=== PATIENT | male | born 1975 | race Caucasian/White ===

== ENCOUNTER 2019-09-12 08:16 | Emergency (ER) | payer OTHER ==
--- OUTSIDE RECORDS SUMMARY | 2019-09-12 08:28 | XMS REPORT | Continuity of Care Document ---
:1975 External Reference #:[id number] Author Name Quintin Flynn (transmitted by agent of provider Roseline Quintero) Address [address] [place] [address] Care Team Providers Name Role Phone Quintin Flynn MD - Internal Medicine Care Team Information [employer] Problems Description No Information Available Social History Type Date Description Comments Sex Unknown Tobacco Use Start: Unknown Patient is a current cigarette smoker, smokes every day ETOH Use Social Tobacco Use Start: Unknown Patient is a current smoker, smokes every day Recreational Drug Use Former Drug User Smoking Status Reviewed: 11/22/17 Patient is a current smoker, smokes every day Seat Belt/Car Seat Negative For Never uses seat belt Seat Belt/Car Seat Always uses seat belt Allergies, Adverse Reactions, Alerts Active Allergies Reaction Severity Comments Date Amlodipine 02/22/2017 Ammonium Lauryl Sulfate 02/22/2017 sulfa 02/22/2017 Medications Active Medications SIG Qnty Indications Ordering Date Provider Azithromycin 2 by mouth today, 6tabs R05 Quintin Flynn 07/09/2019 250mg 1 by mouth day 2 Tablets thru 5 Tamiflu 1 by mouth twice 10caps J10.00 Quintin Flynn 07/09/2019 75mg Capsules a day Albuterol Sulfate HFA 2 Puffs Every 4 25.5gm J45.30 Quintin Flynn 03/25/2019 Hours as Needed 108(90Base) mcg/Act SOB/Wheezing Aerosol Lidocaine Apply To Affected 30units G89.4 Quintin Flynn 08/06/2018 5% Patches Area(S) , Change Daily as Directed Lisinopril-Hydrochlor 1 tab by mouth 90tabs Quintin Flynn 05/29/2018 othiazide every morning 20-12.5mg Tablets Furosemide Take One Tablet 90tabs Quintin Flynn 04/18/2018 20mg Tablets By Mouth Every Day Benadryl Allergy Take 1 To 2 60caps G47.33 Chad Flynnl 01/02/2018 25mg Tablets By Mouth Capsules Four Times A Day as Needed Omeprazole Take One Capsule 90caps K21.9 Chad Flynnl 11/22/2017 20mg By Mouth Every Capsules DR Day Fluoxetine HCL (PMDD) Take Three 180caps Chad Flynnl 11/22/2017 Capsules By Mouth 20mg Capsules Every Day Advair HFA 2 puff twice day 8gm J45.30 Rina Quintin 09/21/2017 115-21mcg/Act Aerosol J44.9 Betamethasone Dipropionate apply to affected areas 30gm L13.0 Zacheryheather Quintin 08/21/2017 0.05% twice daily Cream Medications Administered in Office Medication SIG Qnty Indications Ordering Provider Date Office Emergency Care Chad Flynnl 07/09/2019 Injection Immunizations CPT Code Status Date Vaccine Lot # [id number] Given 07/30/2018 Tetanus,Diphtheria,Adut/Adol Pertussis [id number] Given 07/30/2018 Influenza Virus Vaccine, Quadrivalent, Split, Preservative Free [id number] Given 09/21/2017 Influenza Virus (Quadrivalent)Splitvirus 3 Years [id number] Of Age And Older Vital Signs Date Vital Result Comment 08/22/2019 10:06am BP Systolic 160 mmHg BP Diastolic 90 mmHg Heart Rate 75 /min Respiratory Rate 20 /min Height 65 inches 5'5" Weight 370.00 lb BMI (Body Mass Index) 61.6 kg/m2 O2 % BldC Oximetry 98 % 07/09/2019 10:17am BP Systolic 160 mmHg BP Diastolic 100 mmHg Heart Rate 70 /min Respiratory Rate 22 /min Height 64 inches 5'4" Weight 370.00 lb BMI (Body Mass Index) 63.5 kg/m2 O2 % BldC Oximetry 97 % Results Test Acquired Date Facility Test Result H/L Range Note Lipid Panel 03/25/2019 Cholesterol 145 mg/dL <199 1 HDL Cholesterol 34 mg/dL Low >40 Cholesterol/HDL Ratio 4.3 CALC <5.0 LDL Chol,Calculated 92 mg/dL 0-100 2 Triglycerides 93 mg/dL <150 Non-HDL Cholesterol 111 mg/dL <130 3 General [facility] 03/25/2019 TSH 1.11 mIU/L 0.40-4.50 T4,Free 1.2 ng/dL 0.8-1.8 CBC W/ Diff & PLT 03/25/2019 WBC 4.5 thous/L 3.8-10.8 RBC 5.05 mill/L 4.20-5.80 Hemoglobin 15.6 g/dL 13.2-17.1 Hematocrit 46.9 % 38.5-50.0 MCV 92.9 FL 80.0-100.0 MCH 30.9 pg 27.0-33.0 MCHC 33.3 g/dL 32.0-36.0 RDW 13.4 % 11.0-15.0 Platelet Count 161 thous/L 140-400 MPV 11.6 FL 7.5-12.5 Neutrophils,Absolute 1940 cells/L 9301-4505 Bands,Absolute PENDING Metamyelocytes,Absolute PENDING Myelocytes,Absolute PENDING Promyelocytes,Absolute PENDING Lymphocytes,Absolute 1790 cells/L 850-3900 Monocytes,Absolute 530 cells/L 200-950 Eosinophils,Absolute 240 cells/L 15-500 Basophils,Absolute 20 cells/L 0-200 Blast Cells,Absolute PENDING Nucleated RBC,Absolute PENDING Total Neutrophils,% 43.0 % 40-75 Bands,% PENDING Metamyelocytes,% PENDING Myelocytes,% PENDING Promyelocytes,% PENDING Total Lymphocytes,% 39.6 % 12-47 Reactive Lymphocytes PENDING Monocytes,% 11.7 % 4-12 Eosinophils,% 5.3 % High 0-4 Basophils,% 0.4 % 0-1 4 Blasts,% PENDING Nucleated RBC PENDING Comment PENDING CMP W/GFR 03/25/2019 Sodium 138 mmol/L 135-146 Potassium 4.7 mmol/L 3.5-5.3 Chloride 103 mmol/L 98-110 Carbon Dioxide 26 mmol/L 20-32 5 Calcium 9.5 mg/dL 8.6-10.3 Alkaline Phosphatase 64 U/L 40-115 Ast 95 U/L High 10-40 Alt 147 U/L High 9-46 Bilirubin,Total 0.7 mg/dL 0.2-1.2 Glucose 79 mg/dL 65-99 6 Urea Nitrogen (BUN) 17 mg/dL 7-25 Creatinine 1.03 mg/dL 0.60-1.35 BUN/Creatinine Ratio 16.5 6-22 Protein,Total 7.3 g/dL 6.1-8.1 Albumin 4.4 g/dL 3.6-5.1 Globulin,Calculated 2.9 g/dL 1.9-3.7 A/G Ratio 1.5 1.0-2.5 Egfr Non-Afr. Angolan 89 ML/MIN/1.73M2 > Or = 60 Egfr 103 ML/MIN/1.73M2 > Or = 60 1 FASTING 2 LDL-C is now calculated using the Thierno-Russell calculation, which is a validated novel method providing better accuracy than the Friedewald equation in the estimation of LDL-C. Thierno RUIZ et al.JOELLEN.2013;310(19):6366-0315 Desirable range <100 mg/dL for primary prevention; <70 mg/dL for patients with CHD or diabetic patients with >or= 2 CHD risk factors. For additional information, please refer to http://education.Kabooza/faq/YEU723(This link is being provided for informational/educational purposes only.) 3 For patients with diabetes plus 1 major ASCVD risk factor, treating to a non-HDL-C goal of <100 mg/dL (LDL-C of <70 mg/ dL) is considered a therapeutic option. 4 Relative blood cell counts (%) should be compared with absolute cell counts (cells/mcL). Relative counts may not be clinically meaningful if the absolute count of one or more cell type is decreased. Reference ranges for relative cell counts derived from: A Manual of Laboratory and Diagnostics Tests, 9th Ed, [employer], 2015. Pediatric Reference Intervals, 7th Ed, [employer], 2011. 5 Reference range for high altitude clients: 18-30 mmol/L 6 GLUCOSE REFERENCE RANGE BASED ON FASTING SPECIMEN. Procedures Date Code Description Status 07/09/2019 59429 PFT Evaluation Completed 07/09/2019 86944 Spirometry Graphic Record/Max Voluntary Vent Completed 04/08/2019 92616 Spirometry Graphic Record/Max Voluntary Vent Completed 03/25/2019 55274 PFT Evaluation Completed 03/25/2019 56672 EKG-Tracing & Report Completed Medical Devices Description No Information Available Encounters Type Date Location Provider Dx Diagnosis Office Visit 07/09/2019 10:00a Main Office Quintin Flynn R06.02 Shortness of breath J44.9 Chronic obstructive pulmonary disease, unspecified G89.4 Chronic pain syndrome E66.01 Morbid (severe) obesity due to excess calories I11.9 Hypertensive heart disease without heart failure J45.30 Mild persistent asthma, uncomplicated K21.9 Gastro-esophageal reflux disease without esophagitis F17.200 Nicotine dependence, unspecified, uncomplicated R05 Cough G47.33 Obstructive sleep apnea (adult) (pediatric) J10.00 Flu due to oth ident flu virus w unsp type of pneumonia Office Visit 04/16/2019 11:45a Main Office Quintin Flynn R06.02 Shortness of breath J44.9 Chronic obstructive pulmonary disease, unspecified G89.4 Chronic pain syndrome E66.01 Morbid (severe) obesity due to excess calories I11.9 Hypertensive heart disease without heart failure J45.30 Mild persistent asthma, uncomplicated K21.9 Gastro-esophageal reflux disease without esophagitis F17.200 Nicotine dependence, unspecified, uncomplicated R07.9 Chest pain, unspecified Office Visit 03/25/2019 10:00a Main Office Quintin Flynn G89.4 Chronic pain syndrome E66.01 Morbid (severe) obesity due to excess calories I11.9 Hypertensive heart disease without heart failure J45.30 Mild persistent asthma, uncomplicated G47.33 Obstructive sleep apnea (adult) (pediatric) J44.9 Chronic obstructive pulmonary disease, unspecified K21.9 Gastro-esophageal reflux disease without esophagitis F17.200 Nicotine dependence, unspecified, uncomplicated R07.9 Chest pain, unspecified E78.2 Mixed hyperlipidemia R05 Cough R06.02 Shortness of breath Assessments Date Code Description Provider 07/09/2019 R06.02 Shortness of breath Gauss, Quintin 07/09/2019 R06.02 Shortness of breath Gauss, Quintin 07/09/2019 J44.9 Chronic obstructive pulmonary disease, unspecified Gauss, Quintin 07/09/2019 J44.9 Chronic obstructive pulmonary disease, unspecified Gauss, Quintin 07/09/2019 R05 Cough Gauss, Quintin 07/09/2019 G89.4 Chronic pain syndrome Gauss, Quintin 07/09/2019 E66.01 Morbid (severe) obesity due to excess calories Gauss, Quintin 07/09/2019 I11.9 Hypertensive heart disease without heart failure Gauss, Quintin 07/09/2019 J45.30 Mild persistent asthma, uncomplicated Gauss, Quintin 07/09/2019 K21.9 Gastro-esophageal reflux disease without esophagitis Gauss , Quintin 07/09/2019 F17.200 Nicotine dependence, unspecified, uncomplicated Gauss, Quintin 07/09/2019 R05 Cough Gauss, Quintin 07/09/2019 G47.33 Obstructive sleep apnea (adult) (pediatric) Gauss, Quintin 07/09/2019 J10.00 Influenza due to other identified influenza virus with [facility] unspecified type of pneumonia 04/16/2019 R06.02 Shortness of breath Gauss, Quintin 04/16/2019 J44.9 Chronic obstructive pulmonary disease, unspecified Gauss, [facility] 04/16/2019 G89.4 Chronic pain syndrome Gauss, [facility] 04/16/2019 E66.01 Morbid (severe) obesity due to excess calories Gauss, Quintin 04/16/2019 I11.9 Hypertensive heart disease without heart failure Gauss, Quintin 04/16/2019 J45.30 Mild persistent asthma, uncomplicated Gauss, Quintin 04/16/2019 K21.9 Gastro-esophageal reflux disease without esophagitis Gauss , Quintin 04/16/2019 F17.200 Nicotine dependence, unspecified, uncomplicated Gauss, Quintin 04/16/2019 R07.9 Chest pain, unspecified Gauss, Quintin 04/08/2019 R06.02 Shortness of breath Gauss, Quintin 04/08/2019 J44.9 Chronic obstructive pulmonary disease, unspecified Gauss, Quintin 04/08/2019 R05 Cough Gauss, [facility] 03/25/2019 G89.4 Chronic pain syndrome Gauss, [facility] 03/25/2019 E66.01 Morbid (severe) obesity due to excess calories Gauss, Quintin 03/25/2019 I11.9 Hypertensive heart disease without heart failure Gauss, Quintin 03/25/2019 J45.30 Mild persistent asthma, uncomplicated Gauss, Quintin 03/25/2019 G47.33 Obstructive sleep apnea (adult) (pediatric) Gauss, [place] 03/25/2019 J44.9 Chronic obstructive pulmonary disease, unspecified Gauss, Quintin 03/25/2019 K21.9 Gastro-esophageal reflux disease without esophagitis Gauss , [facility] 03/25/2019 F17.200 Nicotine dependence, unspecified, uncomplicated Rina, Quintin 03/25/2019 R07.9 Chest pain, unspecified Rina, Quintin 03/25/2019 E78.2 Mixed hyperlipidemia Rina, Quintin 03/25/2019 R05 Cough Rina, Quintin 03/25/2019 R06.02 Shortness of breath Quintin Flynn Plan of Treatment 07/09/2019 - Chad FlynnlR06.02 Shortness of guvmbwK13.9 Chronic obstructive pulmonary disease, unspecifiedComments:Discussed importance of excersize and avoidance of all smoke. Enviromental factors that can spark exacerbations reviewed. The necessity of reporting any changes in condition, early intervention in exacerbations and proper useand the importance of compliance with medications. Reports if applicable of home care providers, and equipment suppliers and Respiratory Therapy reviewed.G89.4 Chronic pain ndgwzldqS55.01 Morbid (severe) obesity due to excess zcjqiguiJ90.9 Hypertensive heart disease without heart failureComments:CONT. TO MONITOR BP, CONT. LOW SALT DIET Discussed lifestyle factors and role of diet and excerns incontrol of disease and treatment goals and targets. Medication side effects and compliance issues addressed as indicated. The importance of ongoing self monitoring of BP and the symptoms of complications such as TIA, CVA and AMI reviewed. The importance of reporting changes in between visits and side effects stressed. monitoring of patient provided BP checks and laboratory tests related to medicationreviewed. Discussed lifestyle factors and role of diet and excerns in control of disease and treatment goals and targets. Medication side effects and compliance issues addressed as indicated. The importance of ongoing self monitoring of BP and the symptoms of complications such as TIA, CVA and AMI reviewed. The importance of reporting changes in between visits and side effects stressed. monitoring of patient provided BP checks and laboratory tests related to medication reviewed.J45.30 Mild persistent asthma, nmwroopyjwmnqL78.9 Gastro-esophageal reflux disease without esophagitisComments:Discussed role of diet and excersize and weight reduction and contribution of common exacerbating factors/ substances such as stress/fatigue/caffeine/nicotine/chocolate/ foods.Signs and symptoms of disease progression discussed as well as necessity to promptly report changes or worsening and the need for medication compliance. Periodic measurement and follow up for serum Magnesium levels while on PPI.F17.200 Nicotine dependence, unspecified, uncomplicatedComments:Discussed health effects and consequences of nicotine and tobacco. Discussed quitting strategies andaids to withdrawal including seminars, classes, hypnosis, medications. Offered encouragement to change and benefits to be expected in health overall and specific conditions that are effected. Literature and follow up planned.Discussed health effects and consequences of nicotine and tobacco. Discussed quitting strategies and aids to withdrawal including seminars, classes , hypnosis, medications. Offered encouragement to change and benefits to be expected in health overall and specific conditions that are effected. Literature and follow up planned. Discussion time less than 10 [id number] CoughNew Medication:Azithromycin 250 mg - 2 by mouth today, 1 by mouth day 2 thru 5G47.33 Obstructive sleep apnea (adult) (pediatric)Comments:Continue CPAPWeight LossJ10.00 Influenza due to other identified influenza virus with unspecified type of pneumoniaNew Medication:Tamiflu 75 mg - 1 by mouth twice a day Functional Status Description No Information Available Mental Status Description No Information Available Referrals Refer to Reason for Referral Status Appt Date Sae Dai Closed 04/30/2019 [address] [place] [id number] [phone]
[2019-09-12 08:52] VITALS: BP 184/111
--- NOTE | 2019-09-12 09:18 | UC ---
Skin Complaint HPI - HPI Summary HPI Summary: Pt presents with c/o "sores" on right hand that began 2-3 days ago. Pt states that they spontaneously appeared, one has opened and drained last evening, and pt reports he has applied otc neosporin ointment and noted that one days later his right hand began to swell. Pt denies fever, chills, red streaking from wounds and reports one wound/sore opened and drained last night. Pt denies aggravating wounds and is keeping them clean by washing hands frequently. - History of Current Complaint Chief Complaint: UCUpperExtremity Time Seen by Provider: 09/12/19 08:50 Stated Complaint: RT HAND SWELLING Hx Obtained From: Patient Onset/Duration: Sudden Onset, Lasting Days, Still Present, Worse Since - onset Skin Exposure Onset/Duration: Days Ago Onset Severity: Mild Current Severity: Moderate Pain Intensity: 7 Location: Discrete - right hand Character: Swelling Aggravating Factor(s): OTC Meds Alleviating Factor(s): Unknown Associated Signs & Symptoms: Positive: Drainage - Allergy/Home Medications Allergies/Adverse Reactions: Allergies Allergy/AdvReac Type Severity Reaction Status Date / Time amlodipine Allergy Anaphylatic Verified 09/12/19 08:44 Shock Sulfa (Sulfonamide Allergy Anaphylatic Verified 09/12/19 08:44 Antibiotics) Shock Home Medications: Home Medications Albuterol HFA INHALER* [Ventolin HFA Inhaler*] 2 puff INH Q4H PRN 09/12/19 [ History Confirmed 09/12/19] Betamethasone Dip 0.05% ON(NF) [Betamethasone Dipr 0.05% OINT(NF)] 1 dose TOPICAL BID PRN 09/12/19 [History Confirmed 09/12/19] FLUoxetine CAP* [Prozac CAP*] 3 tab PO DAILY 09/12/19 [History Confirmed ] Fluticas/Salmet 115/21 HFA(NF) [Advair HFA 115/21 (NF)] 2 puff INH BID 09/12/19 [History Confirmed 09/12/19] Furosemide TAB* [Lasix TAB*] 20 mg PO DAILY 09/12/19 [History Confirmed 09/12/19 ] Ibuprofen TAB* [Motrin TAB* 600 MG] 600 mg PO Q8H PRN 09/12/19 [History Confirmed 09/12/19] Lidocaine 5% OINT* TUBE [Xylocaine 5% Oint*] 1 dose TOPICAL DAILY PRN 09/12/19 [ History Confirmed 09/12/19] Lisinopril/Hydrochlorothiazide [Lisinopril-Hctz 20-12.5 mg Tab] 1 tab PO QAM [History Confirmed 09/12/19] Omeprazole CAP (NF) [Prilosec CAP* 20 MG] 20 mg PO DAILY 09/12/19 [History Confirmed 09/12/19] PMH/Surg Hx/FS Hx/Imm Hx Previously Healthy: Yes Cardiovascular History: Cardiac Disease, Hypertension - Surgical History Surgical History: None - Family History Known Family History: Positive: Cardiac Disease - Social History Lives: With Family Alcohol Use: Rare Substance Use Type: None Smoking Status (MU): Heavy Every Day Tobacco Smoker Amount Used/How Often: 1 ppd Have You Smoked in the Last Year: Yes Household Exposure Type: Cigarettes Review of Systems All Other Systems Reviewed And Are Negative: Yes Constitutional: Positive: Negative Skin: Positive: Other - sores/woudns on right dorsal aspect of hand. Eyes: Positive: Negative ENT: Positive: Negative Respiratory: Positive: Negative Cardiovascular: Positive: Negative Gastrointestinal: Positive: Negative Genitourinary: Positive: Negative Motor: Positive: Negative Neurovascular: Positive: Negative Musculoskeletal: Positive: Edema - right hand/generalized Neurological: Positive: Negative Psychological: Positive: Negative Is Patient Immunocompromised?: No Physical Exam Triage Information Reviewed: Yes Appearance: Well-Appearing, Obese Vital Signs: Initial Vital Signs Temp 97.1 F 09/12/19 08:44 Pulse 70 09/12/19 08:44 Resp 16 09/12/19 08:44 BP 184/111 09/12/19 08:44 Pulse Ox 99 09/12/19 08:44 Vital Signs Reviewed: Yes Eye Exam: Normal ENT Exam: Normal Dental Exam: Normal Neck exam: Normal Respiratory Exam: Normal Cardiovascular Exam: Normal Musculoskeletal: Positive: Edema @ - generalized, non pitting, right hand Neurological Exam: Normal Psychological Exam: Normal Skin Exam: Other - acute wounds right hand ~ 1 cm in diamter each. non erythematous no drainage. Course/Dx - Differential Diagnoses - Skin Complaint Differential Diagnoses: Abscess, Cellulitis, MRSA - Diagnoses Provider Diagnosis: Open wound, hand Discharge ED - Sign-Out/Discharge Documenting (check all that apply): Patient Departure All imaging exams completed and their final reports reviewed: No Studies - Discharge Plan Condition: Stable Disposition: HOME Prescriptions: DOXYcycline CAP(*) [DOXYcycline 100MG CAP(*)] 100 mg PO Q12H #20 cap Patient Education Materials: Wound Infection (ED) Referrals: Quintin Flynn MD [Primary Care Provider] - As Soon As Possible Additional Instructions: Please note, that your blood pressure was elevated at todays visit. Please follow up with your PCP as soon as possible regarding this. - Billing Disposition and Condition Condition: STABLE Disposition: Home - Attestation Statements Provider Attestation: Per institutional requirements, I have reviewed the chart, however, I was not consulted specifically or made aware of this patient by the midlevel provider. I did not personally evaluate, interact with , or disposition this patient.
== END 2019-09-12 09:25 | disposition home or self-care (01) ==
LOC: UCCORT 08:16
DX: S61.401A Unspecified open wound of right hand, initial encounter (principal); I10 Essential (primary) hypertension; F17.210 Nicotine dependence, cigarettes, uncomplicated; Z79.899 Other long term (current) drug therapy; Z88.8 Allergy status to other drugs, medicaments and biological substances; Z88.2 Allergy status to sulfonamides; X58.XXXA Exposure to other specified factors, initial encounter; Y92.9 Unspecified place or not applicable
CPT/HCPCS: 99202; G0463